=== PATIENT | female | born 1930 | race African-American/Black ===

== ENCOUNTER 2019-08-19 09:55 | Inpatient (IN) | payer MEDICARE, MEDICAID ==
[~2019-08-19] VITALS: Ht 157.5 cm; Wt 44.9 kg
[2019-08-19] MEDS ORDERED: SODIUM CHLORIDE 0.9% 1,000 ML IV ONE (10:21)
[2019-08-19 10:33] LABS: BASOPHILS % 0.3 % (0.0-2.0); EOSINOPHILS % 0.6 % (0.0-5.0); HEMATOCRIT. 38.1 % (36.0-48.0); HEMOGLOBIN. 13.1 g/dL (12.0-16.0); LYMPHOCYTES % 24.4 % (20.0-50.0); MEAN CORPUSCULAR HEMOGLOBIN 30.4 pg (28.0-32.0); MEAN CORPUSCULAR VOLUME 88.6 fL (81.0-99.0); MEAN PLATELET VOLUME 8.5 fl (7.4-10.4); NEUTROPHILS % 70.7 % (40.0-76.0); PLATELET 217 x1000/uL (130-400); RED BLOOD CELL COUNT 4.31 mill/uL (4.2-5.4)
[2019-08-19 10:41] LABS: CHLORIDE 103 mEq/L (98-107)
[2019-08-19 10:48] LABS: CLARITY URINE CLEAR (CLEAR); COLOR URINE DARK YELLOW (YELLOW); KETONES URINE 1+ (NEGATIVE); LEUKOCYTE ESTERASE URINE TRACE (NEGATIVE); NITRITE URINE NEGATIVE (NEGATIVE); OCCULT BLOOD URINE NEGATIVE (NEGATIVE); PROTEIN URINE 1+ (NEGATIVE); SPECIFIC GRAVITY URINE 1.024 (1.005-1.030)
[2019-08-19] MEDS ORDERED: POTASSIUM CHLORIDE 20MEQ TABLET SR PO ONE (11:15)
[2019-08-19] MEDS ORDERED: KCL 20MEQ/100ML PREMIX 100 ML IV ONE (11:15)
[2019-08-19] MEDS ORDERED: KCL 20MEQ/100ML PREMIX 100 ML IV NR (11:45)
[2019-08-19] MEDS: SODIUM CHLORIDE 0.9% 1,000 ML IV SCH (14:30)
[2019-08-19] MEDS ORDERED: ACETAMINOPHEN 325MG TABLET PO PRN (14:30)
[2019-08-19 20:00] VITALS: BP 123/75
[2019-08-19 20:50] VITALS: BP 123/75
[2019-08-20] VITALS: BP 113/58
[2019-08-20 04:00] VITALS: BP 109/58
[2019-08-20] MEDS: SODIUM CHLORIDE 0.9% 1,000 ML IV SCH (04:24)
[2019-08-20] MEDS ORDERED: MIRT7.5T11 PO (05:08)
[2019-08-20] MEDS ORDERED: DOCU50LI25 PO (05:08)
[2019-08-20] MEDS ORDERED: ATOR20TA65 PO (05:08)
[2019-08-20] MEDS ORDERED: ALEN70TA68 PO (05:11)
[2019-08-20] MEDS ORDERED: CHOL200059 PO (05:11)
[2019-08-20] MEDS ORDERED: LORA2ORA5 PO (05:11)
[2019-08-20] MEDS ORDERED: DONE10TA43 PO (05:11)
[2019-08-20 07:20] LABS: CHLORIDE 109 mEq/L (98-107)
[2019-08-20 07:22] LABS: BASOPHILS % 0.1 % (0.0-2.0); EOSINOPHILS % 0.9 % (0.0-5.0); HEMATOCRIT. 31.6 % (36.0-48.0); HEMOGLOBIN. 11.3 g/dL (12.0-16.0); LYMPHOCYTES % 18.9 % (20.0-50.0); MEAN CORPUSCULAR HEMOGLOBIN 31.6 pg (28.0-32.0); MEAN CORPUSCULAR VOLUME 88.2 fL (81.0-99.0); MEAN PLATELET VOLUME 8.3 fl (7.4-10.4); MONOCYTES % 5.5 % (2.0-8.0); NEUTROPHILS % 74.6 % (40.0-76.0); PLATELET 131 x1000/uL (130-400); RED BLOOD CELL COUNT 3.59 mill/uL (4.2-5.4); RED CELL DISTRIBUTION WIDTH 14.2 % (11.6-14.6)
[2019-08-20 08:00] VITALS: BP 115/62
[2019-08-20] MEDS: MEGESTROL ACETATE 400 MG/10 ML UDC PO SCH (08:45)
[2019-08-20] MEDS ORDERED: POTASSIUM CHLORIDE 20MEQ TABLET SR PO SCH (09:15)
[2019-08-20] MEDS ORDERED: POTASSIUM CHLORIDE INJ 40 MEQ in DEXT 5% WATER 500 ML IV SCH (10:00)
[2019-08-20 12:00] VITALS: BP 106/58
[2019-08-20] MEDS: SODIUM CHLORIDE 0.45% 1,000 ML IV SCH (13:22)
[2019-08-20] MEDS: ASPIRIN 81MG TABLET PO SCH (13:33)
[2019-08-20] MEDS ORDERED: MAGNESIUM 2 G PREMIX 50 ML IV SCH (14:00)
[2019-08-20] MEDS ORDERED: POTASSIUM CHLORIDE INJ 40 MEQ in DEXT 5% WATER 250 ML IV SCH ×2 (14:00→17:00)
[2019-08-20 16:00] VITALS: BP 108/65
[2019-08-20] MEDS: POTASSIUM CHLORIDE 20MEQ TABLET SR PO SCH (17:55)
[2019-08-20 20:00] VITALS: BP 127/71
[2019-08-20] MEDS: ATORVASTATIN CALCIUM 40MG TABLET PO SCH (20:02)
[2019-08-21] VITALS: BP 119/51
[2019-08-21 04:00] VITALS: BP 144/87
[2019-08-21] MEDS: SODIUM CHLORIDE 0.45% 1,000 ML IV SCH ×2 (05:34→15:21)
[2019-08-21] MEDS: ONDANSETRON HCL 4MG/2ML INJ IV PRN ×3 (05:34→21:23)
[2019-08-21] MEDS: LEVOTHYROXINE SODIUM 50MCG TABLET PO SCH (06:08)
[2019-08-21 07:29] LABS: HEMATOCRIT. 35.4 % (36.0-48.0); HEMOGLOBIN. 12.5 g/dL (12.0-16.0); MEAN CORPUSCULAR HEMOGLOBIN 31.3 pg (28.0-32.0); MEAN CORPUSCULAR VOLUME 88.8 fL (81.0-99.0); MEAN PLATELET VOLUME 9.4 fl (7.4-10.4); PLATELET 118 x1000/uL (130-400); RED BLOOD CELL COUNT 3.98 mill/uL (4.2-5.4); RED CELL DISTRIBUTION WIDTH 14.5 % (11.6-14.6)
[2019-08-21 08:25] LABS: CHLORIDE 107 mEq/L (98-107)
[2019-08-21] MEDS: POTASSIUM CHLORIDE 20MEQ TABLET SR PO SCH ×3 (08:49→17:00)
[2019-08-21] MEDS: MEGESTROL ACETATE 400 MG/10 ML UDC PO SCH ×2 (08:49→08:55)
[2019-08-21] MEDS: ASPIRIN 81MG TABLET PO SCH (08:49)
[2019-08-21 12:00] VITALS: BP 124/71
[2019-08-21] MEDS: DILTIAZEM HCL 30MG TABLET PO SCH ×2 (14:00→20:40)
[2019-08-21 14:08] LABS: PLATELET ESTIMATE DECREASED
[2019-08-21 16:00] VITALS: BP 139/63
[2019-08-21 20:00] VITALS: BP 174/107
[2019-08-21] MEDS: ATORVASTATIN CALCIUM 40MG TABLET PO SCH ×3 (20:40→20:47)
[2019-08-22] VITALS: BP 140/89
[2019-08-22] MEDS: ONDANSETRON HCL 4MG/2ML INJ IV PRN (03:55)
[2019-08-22 04:00] VITALS: BP 144/84
[2019-08-22] MEDS: SODIUM CHLORIDE 0.45% 1,000 ML IV SCH ×2 (04:02→18:40)
[2019-08-22] MEDS: DILTIAZEM HCL 30MG TABLET PO SCH ×3 (06:00→20:56)
[2019-08-22] MEDS: LEVOTHYROXINE SODIUM 50MCG TABLET PO SCH (06:04)
[2019-08-22] MEDS: MEGESTROL ACETATE 400 MG/10 ML UDC PO SCH (09:46)
[2019-08-22] MEDS: ASPIRIN 81MG TABLET PO SCH (09:46)
[2019-08-22 11:46] LABS: HEMATOCRIT. 33.5 % (36.0-48.0); HEMOGLOBIN. 11.7 g/dL (12.0-16.0); MEAN CORPUSCULAR HEMOGLOBIN 30.8 pg (28.0-32.0); MEAN CORPUSCULAR VOLUME 87.9 fL (81.0-99.0); MEAN PLATELET VOLUME 8.5 fl (7.4-10.4); PLATELET 163 x1000/uL (130-400); RED BLOOD CELL COUNT 3.81 mill/uL (4.2-5.4); RED CELL DISTRIBUTION WIDTH 14.6 % (11.6-14.6)
[2019-08-22 12:00] VITALS: BP 153/99
[2019-08-22 12:27] LABS: CHLORIDE 103 mEq/L (98-107)
[2019-08-22 16:00] VITALS: BP 113/79
[2019-08-22 19:02] LABS: PLATELET ESTIMATE NORMAL
[2019-08-22 20:00] VITALS: BP 137/91
[2019-08-22] MEDS: ATORVASTATIN CALCIUM 40MG TABLET PO SCH (20:56)
[2019-08-22 22:55] VITALS: BP 137/91
[2019-08-23] VITALS: BP 134/80
[2019-08-23 04:00] VITALS: BP 130/89
[2019-08-23] MEDS: DILTIAZEM HCL 30MG TABLET PO SCH (06:18)
[2019-08-23] MEDS: LEVOTHYROXINE SODIUM 50MCG TABLET PO SCH (06:18)
[2019-08-23] MEDS: SODIUM CHLORIDE 0.45% 1,000 ML IV SCH ×2 (06:21→22:41)
[2019-08-23] MEDS: ASPIRIN 81MG TABLET PO SCH (08:49)
[2019-08-23] MEDS: MEGESTROL ACETATE 400 MG/10 ML UDC PO SCH (08:49)
[2019-08-23 10:11] LABS: BASOPHILS % 0.1 % (0.0-2.0); EOSINOPHILS % 0.8 % (0.0-5.0); HEMATOCRIT. 36.2 % (36.0-48.0); HEMOGLOBIN. 12.7 g/dL (12.0-16.0); LYMPHOCYTES % 10.8 % (20.0-50.0); MEAN CORPUSCULAR VOLUME 88.1 fL (81.0-99.0); MEAN PLATELET VOLUME 8.7 fl (7.4-10.4); MONOCYTES % 7.5 % (2.0-8.0); NEUTROPHILS % 80.8 % (40.0-76.0); PLATELET 208 x1000/uL (130-400); RED BLOOD CELL COUNT 4.11 mill/uL (4.2-5.4)
[2019-08-23 10:25] LABS: CHLORIDE 98 mEq/L (98-107)
[2019-08-23] MEDS ORDERED: POTASSIUM CHLORIDE 20MEQ TABLET SR PO NR (13:00)
[2019-08-23] MEDS: DILTIAZEM HCL 60MG TABLET PO SCH ×2 (13:23→23:09)
[2019-08-23 16:00] VITALS: BP 132/75
[2019-08-23] MEDS ORDERED: PANTOPRAZOLE SODIUM 40 MG/VIAL IV SCH (17:00)
[2019-08-23 20:00] VITALS: BP 92/54
[2019-08-23] MEDS: ATORVASTATIN CALCIUM 40MG TABLET PO SCH (20:50)
[2019-08-24] VITALS: BP 101/79
[2019-08-24] MEDS ORDERED: SODIUM BICARBONATE 8.4% MEQ/ML 50ML VIAL IV ONE (04:52)
[2019-08-24] MEDS ORDERED: DEXTROSE 50% WATER 50ML SYRINGE IV ONE (04:52)
[2019-08-24] MEDS ORDERED: EPINEPHRINE 0.1MG/ML (1:10,000) 10ML SYR ONE (04:52)
[2019-08-24] MEDS ORDERED: CALCIUM CHLORIDE 1GM/10ML SYR IV ONE (04:52)
== END 2019-08-24 05:03 | disposition expired | DRG 309 ==
LOC: ER 09:55 → 6EST 14:02 → ENRESERV 19:28 → MICUSO 08-24 04:49
PROVIDERS: ADMIT Internal Medicine; ATTEND Internal Medicine
PROC: 5A12012 Performance of Cardiac Output, Single, Manual (ICD-10-PCS; principal; 2019-08-24)
PROC: 0BH18EZ Insertion of Endotracheal Airway into Trachea, Via Natural or Artificial Opening Endoscopic (ICD-10-PCS; 2019-08-24)
PROC: 5A1935Z Respiratory Ventilation, Less than 24 Consecutive Hours (ICD-10-PCS; 2019-08-24)
DX: I48.91 Unspecified atrial fibrillation (principal); E44.0 Moderate protein-calorie malnutrition; Z68.1 Body mass index [BMI] 19.9 or less, adult; E87.6 Hypokalemia; F03.90 Unspecified dementia, unspecified severity, without behavioral disturbance, psychotic disturbance, mood disturbance, and anxiety; W06.XXXA Fall from bed, initial encounter; M19.90 Unspecified osteoarthritis, unspecified site; E78.5 Hyperlipidemia, unspecified; I10 Essential (primary) hypertension; R07.89 Other chest pain; M54.5 Low back pain; I07.1 Rheumatic tricuspid insufficiency; I27.20 Pulmonary hypertension, unspecified; R62.7 Adult failure to thrive; I46.9 Cardiac arrest, cause unspecified; Z79.899 Other long term (current) drug therapy
CPT/HCPCS: 36415; 71045; 80048; 80053; 80061; 81003; 82962; 83735; 84132; 84145; 84439; 84443; 85025; 87077; 87186; 92950; 93005; 93306; 94002; 97162; 99285; C9113; J2405; J3475; J3480; J3490; J7030; J7060